=== PATIENT | male | born 1985 | race Caucasian/White ===

== ENCOUNTER 2018-06-09 16:11 | Emergency (ER) | payer MEDICAID ==
[~2018-06-09] VITALS: Ht 185.4 cm; Wt 170.1 kg
[2018-06-09 16:15] VITALS: BP_SYST 190
--- NOTE | 2018-06-09 16:20 | NUR ---
Patient to ER bed 4 for evaluation. Patient to bathroom to provide urine sample
--- NOTE | 2018-06-09 16:28 | NUR ---
Patient is awake, alert, and oriented x4. Patient reports he was at a physical and was told his blood pressure was high and he had blood in his urine. Patient denies previous medical history.
[2018-06-09] MEDS ORDERED: NACL 0.9% 1,000 ML IV ONE (16:30)
[2018-06-09] MEDS ORDERED: hydrALAZINE HCL 20 MG/ML VIAL IVP ONE (16:30)
--- NOTE | 2018-06-09 16:31 | NUR ---
YURIY Campbell at bedside examining patient.
[2018-06-09 16:58] LABS: BILIRUBIN,URINE NEGATIVE (NEGATIVE); BLOOD, URINE 1+ (NEGATIVE); CLARITY/URINE CLEAR (CLEAR); COLOR,URINE YELLOW (YELLOW); GLUCOSE,URINE NEGATIVE (NEGATIVE); KETONES,URINE NEGATIVE (NEGATIVE); LEUKOCYTE ESTERASE ,URINE NEGATIVE (NEGATIVE); NITRITE, URINE NEGATIVE (NEGATIVE); PROTEIN URINE NEGATIVE (NEGATIVE); UROBILINOGEN,URINE 0.2 (0.2-1.0)
[2018-06-09 17:02] LABS: HEMOGLOBIN 15.5 g/dL (14.0-18.0); RED BLOOD CELL COUNT(AUTO) 5.09 MIL/uL (4.2-6.2); WHITE BLOOD COUNT (AUTO) 6.8 K/uL (4.8-10.8)
[2018-06-09 17:03] LABS: BASOPHILS % (AUTO) 1.3 % (0.0-2.0); EOSINOPHILS % (AUTO) 1.1 % (0.0-4.0); HEMATOCRIT 45.5 % (36-54); LYMPHOCYTES # (AUTO) 2.2 K/uL (1.0-5.5); LYMPHOCYTES % (AUTO) 31.8 % (20.5-51.5); MEAN CORPUSCULAR HEMOGLOBIN 31 pg (27-31); MEAN CORPUSCULAR HGB CONC 34 % (32-36); MEAN CORPUSCULAR VOLUME 90 fL (79.0-98.0); MONOCYTES # (AUTO) 0.5 K/uL (0.0-1.0); MONOCYTES % (AUTO) 6.8 % (1.7-9.3); NEUTROPHILS # (AUTO) 3.9 K/uL (1.8-7.7); PLATELET COUNT (AUTO) 277 K/uL (130-430); RED CELL DISTRIBUTION WIDTH 12.5 % (9.0-15.0)
[2018-06-09 17:04] LABS: BASOPHILS # (AUTO) 0.1 K/uL (0.0-0.2); EOSINOPHILS # (AUTO) 0.1 K/uL (0.0-0.4)
[2018-06-09 17:06] LABS: ALBUMIN 4.1 g/dL (3.4-4.8); CREATININE 1.03 mg/dL (0.55-1.30); POTASSIUM 3.6 mmol/L (3.5-5.1); TOTAL BILIRUBIN 0.5 mg/dL (0.0-1.0)
[2018-06-09 17:14] LABS: BACTERIA,URINE FEW /HPF (None Seen); RBC,URINE 0-3 /HPF (0-3); WBC,URINE 0-3 /HPF (0-3)
[2018-06-09 17:15] LABS: MUCUS,URINE 2+ /LPF (None Seen)
[2018-06-09 17:38] VITALS: BP_SYST 138
--- NOTE | 2018-06-09 17:39 | NUR ---
Patient given written and verbal discharge instructions and verbalizes understanding. ER MD discussed with patient the results and treatment provided. Patient in stable condition. ID arm band removed. IV catheter removed intact and dressing applied, no active bleeding. Rx of losartan given. Patient educated on pain management and to follow up with PMD. Pain Scale 0/10. Opportunity for questions provided and answered. Medication side effect fact sheet provided.
== END 2018-06-09 17:39 | disposition home or self-care (01) ==
LOC: SED 16:11
DX: I10 Essential (primary) hypertension (principal)
CPT/HCPCS: 36415; 74176; 80053; 81000; 85025; 96374; 99284; J0360; J7030

== ENCOUNTER 2018-07-27 21:31 | Emergency (ER) | payer SELFPAY ==
[~2018-07-27] VITALS: Ht 185.4 cm; Wt 176.9 kg
[2018-07-27 22:27] VITALS: BP_SYST 162
[2018-07-27] MEDS ORDERED: IBUPROFEN 800 MG TABLET PO ONE (23:00)
[2018-07-28 00:01] VITALS: BP_SYST 149
== END 2018-07-28 00:01 | disposition home or self-care (01) ==
LOC: SED 21:31
DX: S93.602A Unspecified sprain of left foot, initial encounter (principal); V43.52XA Car driver injured in collision with other type car in traffic accident, initial encounter; Y93.89 Activity, other specified; Y92.410 Unspecified street and highway as the place of occurrence of the external cause; Y99.8 Other external cause status
CPT/HCPCS: 99283